=== PATIENT | female | born 1985 | race Caucasian/White ===

== ENCOUNTER 2024-02-25 11:17 | Outpatient (CLI) | payer OTHER ==
[~2024-02-25 11:17] MED LIST: PROTONIX40 MG PO; ZOFRAN4 MG PO
== END 2024-02-25 11:19 | disposition home or self-care (01) ==
LOC: SONOGRAMA 11:17
PROVIDERS: ATTEND Pathology Anatomic Pathology & Clinical Pathology
DX: D34 Benign neoplasm of thyroid gland (principal); E06.3 Autoimmune thyroiditis; E04.1 Nontoxic single thyroid nodule